=== PATIENT | male | born 1985 | race Caucasian/White ===

== ENCOUNTER 2017-10-08 10:33 | Emergency (ER) | payer OTHER ==
[~2017-10-08] VITALS: Ht 198.1 cm; Wt 136.1 kg
[~2017-10-08 10:33] MED LIST: NAPR-243 PO
[2017-10-08 10:40] VITALS: BP 149/91
[2017-10-08 11:49] LABS: BASOPHILS % (AUTO) 0 % (0-10); EOSINOPHILS % (AUTO) 0 % (0-10); HEMATOCRIT 46 % (40-54); HEMOGLOBIN 15.9 G/DL (13.3-17.7); LYMPHOCYTES % (AUTO) 13 % (12-44); MEAN CORPUSCULAR HEMOGLOBIN 29 PG (25-34); MEAN CORPUSCULAR HGB CONC 35 G/DL (32-36); MEAN CORPUSCULAR VOLUME 83 FL (80-99); MEAN PLATELET VOLUME 9.5 FL (7.4-10.4); MONOCYTES # (AUTO) 0.4 X 10^3 (0.0-1.0); MONOCYTES % (AUTO) 5 % (0-12); NEUTROPHILS # (AUTO) 6.4 X 10^3 (1.8-7.8); NEUTROPHILS % (AUTO) 83 % (42-75); PLATELET COUNT 283 10^3/uL (130-400); RED BLOOD COUNT 5.54 10^6/uL (4.35-5.85); RED CELL DISTRIBUTION WIDTH 13.9 % (10.0-14.5); WHITE BLOOD COUNT 7.8 10^3/uL (4.3-11.0)
--- NOTE | 2017-10-08 11:49 | Diagnostic Imaging Report ---
EXAM: CHEST 1 VIEW, AP/PA ONLY INDICATION: Chest pain. COMPARISON: None. FINDINGS: Normal heart size and pulmonary vascularity. No focal pulmonary opacity, pleural effusion or pneumothorax. No acute osseous findings. IMPRESSION: No acute cardiopulmonary findings. Dictated by: Dictated on workstation # [id number]
--- NOTE | 2017-10-08 12:03 | ED Chest Pain ---
General Chief Complaint: Chest Pain Stated Complaint: CP Nursing Triage Note: PT CO OF CHEST PAIN STARTED THIS AM, PT STATES HAS POSS SINUS INFECTION AND WAS STARTED ON SUPREX YESTERDAY Nursing Sepsis Screen: No Definite Risk History of Present Illness Date Seen by Provider: Oct 08, 2017 Time Seen by Provider: 11:20 Initial Comments 32-year-old male reports left-sided chest pain. He was started on Suprax yesterday for a sinus infection. He took the Suprax today on an empty stomach and had nausea after that. He denies any diaphoresis. He's had a history of GERD and been on Dexilant, he stopped that approximately 2-3 months ago and has been doing well until today. He has no history of cardiovascular disease. He is recently lost approximately 30-40 pounds through diet and exercise. Timing/Duration: 1-3 hours Severity/Quality: mild ASA po CENTRAL SUPPLY ASSISTANT: No NTG SL CENTRAL SUPPLY ASSISTANT: No Associated Symptoms: No abdominal pain, No back pain, diaphoresis, No dizziness , No edema, No fatigue, No fever/chills, nausea/vomiting, No shortness of breath , No syncope, No weakness Allergies and Home Medications Allergies Coded Allergies: Aspirin (Unverified Allergy, Intermediate, FAMILY HX, 10/02/10) Penicillins (Unverified Allergy, Intermediate, RESPIRATORY, 10/02/10) Azithromycin (Unverified Allergy, Mild, RESP, 10/02/10) Home Medications Naproxen 500 Mg Tablet, 1 EACH PO BID PRN Prescribed by: KAY ZHANG on 10/02/10 2347 Patient Home Medication List Home Medication List Reviewed: Yes Review of Systems Constitutional: no symptoms reported, see HPI Respiratory: No Symptoms Reported, See HPI Cardiovascular: See HPI, Chest Pain Gastrointestinal: See HPI, Nausea All Other Systems Reviewed Negative Unless Noted: Yes Past Qayhstd-Cortmt-Augwpm Hx Patient Social History Alcohol Use: Rarely Uses Recreational Drug Use: No Smoking Status: Never a Smoker Recent Foreign Travel: No Contact w/Someone Who Travel: No Recent Infectious Disease Expo: No Physical Abuse: No Sexual Abuse: No Psychosocial Suicide Risk Score: 0 Reviewed Nursing Assessment Reviewed/Agree w Nursing PMH: Yes Physical Exam Vital Signs Vital Signs - First Documented 10/08/17 10:40 Temp 96.9 Pulse 84 Resp 18 B/P (MAP) 149/91 (110) Pulse Ox 96 O2 Delivery Room Air Capillary Refill : Less Than 3 Seconds General Appearance: No Apparent Distress, WD/WN HEENT: PERRL/EOMI, TMs Normal, Normal ENT Inspection, Pharynx Normal, Other ( exquisite tenderness over the frontal and maxillary sinuses) Neck: Full Range of Motion, Normal Inspection, Non Tender, Supple, No Lymphadenopathy (L), No Lymphadenopathy (R) Respiratory: Chest Non Tender, Lungs Clear, Normal Breath Sounds Cardiovascular: Regular Rate, Rhythm, No Edema, No Murmur, Normal Peripheral Pulses Gastrointestinal: Normal Bowel Sounds, Non Tender, Soft Neurologic/Psychiatric: Oriented x3, No Motor/Sensory Deficits, Normal Mood/ Affect, photovoltaic technician II-XII Norm as Tested Skin: Normal Color, Warm/Dry Lymphatic: No Adenopathy Progress/Results/Core Measures Results/Orders Lab Results Laboratory Tests Test 10/08/17 11:40 Range/Units White Blood Count 7.8 4.3-11.0 10^3/uL Red Blood Count 5.54 4.35-5.85 10^6/uL Hemoglobin 15.9 13.3-17.7 G/DL Hematocrit 46 40-54 % Mean Corpuscular Volume 83 80-99 FL Mean Corpuscular Hemoglobin 29 25-34 PG Mean Corpuscular Hemoglobin Concent 35 32-36 G/DL Red Cell Distribution Width 13.9 10.0-14.5 % Platelet Count 283 130-400 10^3/uL Mean Platelet Volume 9.5 7.4-10.4 FL Neutrophils (%) (Auto) 83 H 42-75 % Lymphocytes (%) (Auto) 13 12-44 % Monocytes (%) (Auto) 5 0-12 % Eosinophils (%) (Auto) 0 0-10 % Basophils (%) (Auto) 0 0-10 % Neutrophils # (Auto) 6.4 1.8-7.8 X 10^3 Lymphocytes # (Auto) 1.0 1.0-4.0 X 10^3 Monocytes # (Auto) 0.4 0.0-1.0 X 10^3 Eosinophils # (Auto) 0.0 0.0-0.3 10^3/uL Basophils # (Auto) 0.0 0.0-0.1 10^3/uL Prothrombin Time 14.3 12.2-14.7 SEC INR Comment 1.1 0.8-1.4 Activated Partial Thromboplast Time 28 24-35 SEC Sodium Level 140 135-145 MMOL/L Potassium Level 4.0 3.6-5.0 MMOL/L Chloride Level 109 H 98-107 MMOL/L Carbon Dioxide Level 24 21-32 MMOL/L Anion Gap 7 5-14 MMOL/L Blood Urea Nitrogen 8 7-18 MG/DL Creatinine 0.88 0.60-1.30 MG/DL Estimat Glomerular Filtration Rate > 60 BUN/Creatinine Ratio 9 Glucose Level 109 H 70-105 MG/DL Calcium Level 9.8 8.5-10.1 MG/DL Magnesium Level 2.2 1.8-2.4 MG/DL Total Bilirubin 1.8 H 0.1-1.0 MG/DL Aspartate Amino Transf (AST/SGOT) 26 5-34 U/L Alanine Aminotransferase (ALT/SGPT) 61 H 0-55 U/L Alkaline Phosphatase 57 40-136 U/L Myoglobin 34.4 10.0-92.0 NG/ML Troponin I < 0.30 <0.30 NG/ML C-Reactive Protein High Sensitivity 0.10 0.00-0.50 MG/DL Total Protein 7.5 6.4-8.2 GM/DL Albumin 4.4 3.2-4.5 GM/DL My Orders Orders - PARVIN JARRELL MOBILITY ARCHITECT Cbc With Automated Diff (10/08/17:) Magnesium (10/08/17 11:21) Chest 1 View, Ap/Pa Only (10/08/17 11:) Ekg Tracing (10/08/17:) Cardiac Profile 1 (10/08/17:) Comprehensive Metabolic Panel (10/08/17:) Myoglobin Serum (10/08/17:) Protime With Inr (10/08/17:) Partial Thromboplastin Time (10/08/17:) O2 (10/08/17:) Monitor-Rhythm Ecg Trace Only (10/08/17:) Saline Lock/Iv-Start (10/08/17:) Hs C Reactive Protein (10/08/17 12:02) Famotidine Injection (Pepcid Injection) (10/08/17 12:21) Pantoprazole Tablet (Protonix Tablet) (10/08/17 12:30) Acetaminophen Tablet/Caplet (Tylenol T (10/08/17 13:08) Medications Given in ED Current Medications Medications Dose Ordered Sig/Kriss Route Start Time Stop Time Status Last Admin Dose Admin Pantoprazole Sodium 40 mg ONCE ONCE PO 10/08/17 12:30 10/08/17 12:31 DC 10/08/17 12:37 40 MG Vital Signs/I&O Vital Sign - Last 12Hours 10/08/17 10/08/17 10:40 10:40 Temp 96.9 Pulse 84 Resp 18 B/P (MAP) 149/91 (110) Pulse Ox 96 O2 Delivery Room Air Blood Pressure Mean: 110 Progress Note : Time: 11:20 Progress Note Initial evaluation completed, recommended cardiac workup. 1145 EKG and chest x-ray within normal limits, awaiting troponin results. 1215 Pepcid and Protonix for GI symptoms. 1245 Tylenol 650 mg for headache. Patient reports complete resolution of his GI symptoms, no chest pain present. Discharge instructions and return precautions reviewed with patient. All questions answered. ECG Initial ECG Impression Date: Oct 08, 2017 Diagnostic Imaging Diagonstic Imaging: Xray Plain Films/CT/US/NM/MRI: chest Comments NAME: KEDAR ADAMSON A MED REC#: [id number] PT STATUS: REG ER : 1985 PHYSICIAN: PARVIN JARRELL ADMIT DATE: 10/08/17/ER Draft Date of Exam:10/08/17 CHEST 1 VIEW, AP/PA ONLY EXAM: CHEST 1 VIEW, AP/PA ONLY INDICATION: Chest pain. COMPARISON: None. FINDINGS: Normal heart size and pulmonary vascularity. No focal pulmonary opacity, pleural effusion or pneumothorax. No acute osseous findings. IMPRESSION: No acute cardiopulmonary findings. Dictated on workstation # [id number] Dict: 10/08/17 1146 Trans: 10/08/17 1149 [id number] Interpreted by: PHUONG JOHNSON MD Electronically signed by: Departure Impression Impression: Primary Impression: Sinusitis Qualified Codes: J01.10 - Acute frontal sinusitis, unspecified Additional Impressions: Gastroesophageal reflux disease Qualified Codes: K21.9 - Gastro-esophageal reflux disease without esophagitis Chest pain Qualified Codes: R07.9 - Chest pain, unspecified Disposition: 01 HOME, SELF-CARE Condition: Improved Departure-Patient Inst. Decision time for Depature: 12:45 Referrals: NO,LOCAL PHYSICIAN (PCP/Family) Primary Care Physician Patient Instructions: Acid Reflux (Gastroesophageal Reflux Disease), Adult (DC) , Chest Pain That Is Not Caused by the Heart (DC), Sinusitis, Adult (DC) Add. Discharge Instructions: Eat before taking your Suprax. Tylenol 650 mg every 6 hours for fever or pain. Usual Angelita pot every 2 hours to help with sinus irrigation. Follow-up with your primary care provider in 2-3 days if her symptoms are not improving Resume taking your Dexilant. Return to emergency department for new problems or concerns. All discharge instructions reviewed with patient and/or family. Voiced understanding. PARVIN JARRELL Oct 08, 2017 12:03
[2017-10-08 12:04] LABS: INR 1.1 (0.8-1.4); PROTHROMBIN TIME PATIENT 14.3 SEC (12.2-14.7)
[2017-10-08 12:14] LABS: ALANINE AMINOTRANSFERASE 61 U/L (0-55); ALBUMIN 4.4 GM/DL (3.2-4.5); ALKALINE PHOSPHATASE 57 U/L (40-136); BILIRUBIN,TOTAL 1.8 MG/DL (0.1-1.0); BUN/CREATININE RATIO 9; CALCIUM 9.8 MG/DL (8.5-10.1); CARBON DIOXIDE 24 MMOL/L (21-32); CHLORIDE 109 MMOL/L (98-107); CREATININE SERUM 0.88 MG/DL (0.60-1.30); GFR ESTIMATED > 60; GLUCOSE 109 MG/DL (70-105); MAGNESIUM 2.2 MG/DL (1.8-2.4); SODIUM 140 MMOL/L (135-145); TOTAL PROTEIN 7.5 GM/DL (6.4-8.2)
[2017-10-08 12:15] LABS: MYOGLOBIN SERUM 34.4 NG/ML (10.0-92.0)
[2017-10-08] MEDS ORDERED: FAMOTIDINE 20MG/2ML IV (PEPCID) IV STA (12:21)
[2017-10-08] MEDS ORDERED: PANTOPRAZOLE 40 MG (PROTONIX) TAB PO ONE (12:30)
[2017-10-08] MEDS ORDERED: ACETAMINOPHEN 325 MG TABLET/CAPLET (TYLENOL) PO STA (13:08)
--- OUTSIDE RECORDS SUMMARY | 2017-10-09 08:59 | XMS REPORT | Continuity of Care Document ---
Author Author [facility] Organization [facility] Address Unknown Phone Unavailable Allergies Active Description Code Type Severity Reaction Onset Reported/Identified Relationship to Patient Clinical Status Yes aspirin [id number] Drug Allergy Moderate FAMILY HX 10/02/2010 Yes Penicillins [id number] Drug Allergy Moderate RESPIRATORY 10/02/2010 Yes azithromycin [id number] Drug Allergy Mild RESP 10/02/2010 Medications There is no data. Problems Date Dx Coded Attending Type Code Diagnosis Diagnosed By 06/29/1553 INGRIS CROOK DO Ot S43.401D 06/29/1553 INGRIS CROOK DO Ot X39.8XXD 06/29/1553 INGRIS CROOK DO Ot Y99.0 10/02/2010 Ot 836.2 10/02/2010 Ot 959.7 10/02/2010 Ot E000.0 10/02/2010 Ot E849.3 10/02/2010 Ot E927.0 07/27/2015 INGRIS CROOK DO Ot S43.401D 07/27/2015 INGRIS CROOK DO Ot X39.8XXD 07/27/2015 INGRIS CROOK DO Ot Y99.0 12/31/2015 ROSALVA DICKERSON DO Ot M25.511 PAIN IN RIGHT SHOULDER 02/04/2016 ROSALVA DICKERSON DO Ot M25.511 PAIN IN RIGHT SHOULDER 02/04/2016 ROSALVA DICKERSON DO Ot M25.511 PAIN IN RIGHT SHOULDER Procedures There is no data. Results There is no data. Encounters ACCT No. Visit Date/Time Discharge Status Pt. Type Provider Facility Loc./Unit Complaint [id number] 02/05/2016 00:08:00 02/05/2016 23:59:59 CLS Preadmit ROSALVA DICKERSON DO [facility] [id number] 01/22/2016 08:05:00 02/04/2016 00:01:00 DIS Outpatient ROSALVA DICKERSON DO [facility] RE[facility] [id number] 07/28/2015 07:59:00 07/28/2015 23:59:59 CLS Outpatient INGRIS CROOK DO [facility] OCC INJURY TO RIGHT SHOULDER [id number] 07/16/2015 08:03:00 07/27/2015 15:54:00 DIS Outpatient INGRIS CROOK DO [facility] [id number] 07/09/2015 10:30:00 07/09/2015 23:59:59 CLS Outpatient INGRIS CROOK DO [facility] OCC [id number] 10/02/2010 20:56:00 Document Registration
== END 2017-10-08 13:23 | disposition home or self-care (01) ==
LOC: EDUNIT# 10:33 → ER 10:35
DX: J32.9 Chronic sinusitis, unspecified (principal); K21.9 Gastro-esophageal reflux disease without esophagitis; R07.89 Other chest pain; Z88.6 Allergy status to analgesic agent; Z88.0 Allergy status to penicillin; Z88.1 Allergy status to other antibiotic agents
CPT/HCPCS: 36415; 71045; 80053; 83735; 83874; 84484; 85025; 85610; 85730; 86141; 93005; 93041